=== PATIENT | female | born 1970 | race Caucasian/White ===

== ENCOUNTER → 2020-03-13 13:28 | Outpatient (CLI) | payer OTHER, SELFPAY ==
[2020-03-13 10:57] VITALS: BMI 31.6
--- NOTE | 2020-03-13 13:32 | VDLE_ITS ---
Reason For Study: Swelling RIGHT LEFT CFV is compressible, spontaneous, phasic, CFV is compressible, spontaneous, phasic, competent and demonstrates normal competent, and demonstrates normal augmentation. augmentation. FV is compressible, spontaneous, phasic, competent and demonstrates normal augmentation. POP V is compressible, spontaneous, phasic, competent and demonstrates normal augmentation. T/P Trunk is compressible. PTV is compressible. RT PerV is compressible. Superficial vein thrombosis is noted in the right GSV from distal thigh to prox thigh not extending into junction. Thrombus filled varicose veins noted in the mid thigh to proximal calf. Procedure Exam performed in department. A preliminary report was called and/or faxed to [facility]. Interpretation Summary Deep veins of the right lower extremity are patent and compressible segmentally. There is no evidence of right lower extremity deep vein thrombosis. Valvular competence appears intact within the proximal deep venous system on the right . Acute superficial thrombophlebitis is noted in the right great saphenous vein from the distal thigh to the proximal thigh, but not extending into the deep venous system. Acute superficial thrombophlebitis is noted involving superficial varicosities in the right mid-thigh down to the proximal calf. Ordering Physician: Sylvain Salmeron Referring Physician: Arlene Verdugo Performed By: Katia Winslow RVT
== END ==
PROVIDERS: PCP Internal Medicine; Referring Provider Nurse Practitioner Family; Visit Provider Nurse Practitioner Family
DX: I83.813 Varicose veins of bilateral lower extremities with pain (principal); M79.661 Pain in right lower leg; M79.651 Pain in right thigh
CPT/HCPCS: 93971

== ENCOUNTER → 2020-09-19 15:35 | Outpatient (CLI) | payer OTHER, SELFPAY ==
[2020-08-07 17:03] VITALS: BMI 30.8
[2020-09-19 16:58] LABS: Absolute Lymphocyte Count 2.11 X10^3/uL (0.83-4.51); Absolute Neutrophil Count 5.8 X10^3/uL (2.0-7.7); Basophil# 0.07 X10^3/uL; Basophil% 0.8 % (0-1); Eosinophil# 0.19 X10^3/uL; Eosinophils% 2.1 % (0-5); Hematocrit 35.2 % (37-47); Hemoglobin 10.1 g/dL (12.0-15.0); Lymphocyte # 2.11 X10^3/ul (4.0); Lymphocyte % 23.7 % (19-41); Mean Corp Hgb Conc 28.7 g/dL (32-36); Mean Corpuscular Hgb 21.7 pg (27.0-32.0); Mean Corpuscular Volume 75.7 fL (81-99); Mean Platelet Vol. 9.8 fl (6.2-12.0); Monocyte# 0.68 X10^3/uL; Monocyte% 7.6 % (0-10); NRBC Flagged by Analyzer 0 % (0-5); Neutrophil # 5.83 X10^3/uL (2.7-7.7); Neutrophil % 65.5 % (47-70); Platelet Count 295 K/mm3 (150-450); RBC Distribution Width CV 16.5 % (11.6-14.6); RBC Distribution Width SD 44.3 fl (35.1-43.9); Red Blood Count 4.65 M/mm3 (4.2-5.4); White Blood Count 8.9 K/mm3 (4.4-11.0)
[2020-09-19 17:17] LABS: ALB/GLOB Ratio 1.1 RATIO (0.9-2.4); AST(SGOT) 9 U/L (15-37); Alanine Aminotransfer ALT/SGPT 26 U/L (13-56); Albumin, Serum 3.8 g/dL (3.2-5.0); Alkaline Phosphatase 51 U/L (45-117); Anion Gap 4 (5-15); BUN 19 mg/dL (7-18); BUN/Creat Ratio 25.3 RATIO (10-20); Chloride 107 mmol/L (98-107); Cholesterol 155 mg/dL (200); Creatinine, Serum 0.75 mg/dL (0.55-1.02); EST Glomerular Filtration Rate 87 mL/min (>60); Est Glom Filt Rate - Afr Amer 105 mL/min (>60); Globulin 3.6 g/dL (2.2-4.2); Glucose 84 mg/dL (74-106); High Density Lipoprotein 81 mg/dL; Potassium 4.3 mmol/L (3.5-5.1); Protein, Total 7.4 g/dL (6.4-8.2); Sodium Level 139 mmol/L (136-145); Triglycerides 82 mg/dL; Very Low Density Lipoprotein 16 mg/dL (5-40)
[2020-09-20 10:49] LABS: Ferritin 4 ng/mL (8-252); Iron 45 ug/dL (50-170); Iron Binding Capacity,Total 521 ug/dL (250-450)
== END ==
PROVIDERS: PCP Internal Medicine; Referring Provider Internal Medicine; Visit Provider Internal Medicine
DX: Z00.00 Encounter for general adult medical examination without abnormal findings (principal); D64.9 Anemia, unspecified
CPT/HCPCS: 36415; 80053; 80061; 82728; 83540; 83550; 85025

== ENCOUNTER → 2020-09-23 15:31 | Outpatient (CLI) | payer OTHER, SELFPAY ==
[2020-09-19 16:21] VITALS: BMI 30.8
== END ==
PROVIDERS: PCP Internal Medicine; Visit Provider Internal Medicine
DX: D64.9 Anemia, unspecified (principal)
CPT/HCPCS: 82274

== ENCOUNTER → 2020-10-17 16:33 | Outpatient (CLI) | payer OTHER, SELFPAY ==
[2020-10-17 14:15] VITALS: BMI 31.0
[2020-10-22 20:32] LABS: HPV APTIMA, High Risk Negative (Negative)
== END ==
PROVIDERS: PCP Internal Medicine; Visit Provider Nurse Practitioner Women's Health
DX: Z12.4 Encounter for screening for malignant neoplasm of cervix (principal)
CPT/HCPCS: 87624; 88175; G0145

== ENCOUNTER → 2020-10-29 12:51 | Outpatient (CLI) | payer OTHER, SELFPAY ==
[2020-05-01 18:16] VITALS: BMI 31.6
[2020-10-17 14:15] VITALS: BMI 31.0
--- NOTE | 2020-10-29 13:02 | BI_ITS ---
MAMMOGRAPHY - BILATERAL SCREENING REASON FOR EXAM: Female, 49 years old. Routine annual screening examination. PERTINENT HISTORY: Non-contributory. TECHNIQUE: Digital bilateral breast elver (3D mammographic acquisition) in the CC and MLO projections. 2-D mediolateral oblique (MLO) and craniocaudad (CC) views of both breasts were obtained. CAD: Full Field Digital Mammography with Computer Added Detection was performed. COMPARISON: Comparison is made with prior outside examination 04/01/2015. FINDINGS: Breast Composition: The breasts are heterogeneously dense, which may obscure small masses. There are no dominant masses or suspicious calcifications. No other significant abnormalities are identified. There has been no significant change since the prior study. BI/SCRN MAMM (CAD)W/ELVER BILAT IMPRESSION: Stable bilateral screening mammogram. Yearly follow-up mammogram recommended. (A) ASSESSMENT CATEGORY: BIRADS Category 1: Negative. A letter regarding these results will be sent to the patient by the facility within 30 days. Approximately 10% of breast cancers are not detected by mammography. A normal mammogram should not delay biopsy of a clinically suspicious abnormality. [id number] Electronically Signed: Darrius Hernández MD at 15:09 EDT , Service support ,
--- NOTE | 2020-10-29 13:02 | US_ITS ---
STUDY: ULTRASOUND OF THE FEMALE PELVIS - COMPLETE REASON FOR EXAM: Female, 49 years old. Menorrhagia LMP: 09/28/2020 TECHNIQUE: Transabdominal and Transvaginal TECHNICAL QUALITY: Adequate. COMPARISON: None. FINDINGS: The uterus is anteverted and is in a midline position. The uterus is enlarged and measures 14.7 cm x 7.4 cm x 7.8 cm. There is a Nabothian cyst of the cervix. There is a 1.6 cm x 1.1 cm x 1 cm polyp in the endocervical canal. The endometrium measures 14 mm in thickness, and is . There is no demonstrated endometrial mass. 2 fibroids are seen. The largest fibroid measures 7.3 cm x 5.6 cm x 5 cm. I.U.D. - The patient does not have an I.U.D. The right ovary is visualized. The right ovary measures 2.9 cm x 3 cm x 2.3 cm. There is a 2.2 cm x 2.3 cm x 1.7 cm right ovarian cyst. There is no visualized right adnexal mass or complex lesion. There is normal arterial and normal venous vascularity. The left ovary is visualized. The left ovary measures 3.7 cm x 2.8 cm x 1.9 cm. There is a 1.7 cm x 2 cm x 1.4 cm left ovarian cyst. There is no visualized left adnexal mass or complex lesion. There is normal arterial and normal venous vascularity. There is no fluid in the cul-de-sac. The pre void volume of the bladder was 602 ml. US/Pelvic (Non ) IMPRESSION: Enlarged fibroid uterus containing at least 2 fibroids the largest measuring 7.3 cm x 5.6 x 5 cm. Findings suggestive of a 1.6 cm x 1 cm x 1.1 cm polyp in the uterine cervix. Bilateral ovarian cysts. Electronically Signed: Darrius Hernández MD at 15:26 EDT , Service support ,
--- NOTE | 2020-10-29 13:02 | US_ITS ---
STUDY: ULTRASOUND OF THE FEMALE PELVIS - COMPLETE REASON FOR EXAM: Female, 49 years old. Menorrhagia LMP: 09/28/2020 TECHNIQUE: Transabdominal and Transvaginal TECHNICAL QUALITY: Adequate. COMPARISON: None. FINDINGS: The uterus is anteverted and is in a midline position. The uterus is enlarged and measures 14.7 cm x 7.4 cm x 7.8 cm. There is a Nabothian cyst of the cervix. There is a 1.6 cm x 1.1 cm x 1 cm polyp in the endocervical canal. The endometrium measures 14 mm in thickness, and is . There is no demonstrated endometrial mass. 2 fibroids are seen. The largest fibroid measures 7.3 cm x 5.6 cm x 5 cm. I.U.D. - The patient does not have an I.U.D. The right ovary is visualized. The right ovary measures 2.9 cm x 3 cm x 2.3 cm. There is a 2.2 cm x 2.3 cm x 1.7 cm right ovarian cyst. There is no visualized right adnexal mass or complex lesion. There is normal arterial and normal venous vascularity. The left ovary is visualized. The left ovary measures 3.7 cm x 2.8 cm x 1.9 cm. There is a 1.7 cm x 2 cm x 1.4 cm left ovarian cyst. There is no visualized left adnexal mass or complex lesion. There is normal arterial and normal venous vascularity. There is no fluid in the cul-de-sac. The pre void volume of the bladder was 602 ml. US/Transvaginal Non- IMPRESSION: Enlarged fibroid uterus containing at least 2 fibroids the largest measuring 7.3 cm x 5.6 x 5 cm. Findings suggestive of a 1.6 cm x 1 cm x 1.1 cm polyp in the uterine cervix. Bilateral ovarian cysts. Electronically Signed: Darrius Hernández MD at 15:26 EDT , Service support ,
== END ==
PROVIDERS: PCP Internal Medicine; Referring Provider Nurse Practitioner Women's Health; Visit Provider Nurse Practitioner Women's Health
DX: Z12.31 Encounter for screening mammogram for malignant neoplasm of breast (principal); N92.0 Excessive and frequent menstruation with regular cycle
CPT/HCPCS: 76830; 76856; 77063; 77067

== ENCOUNTER → 2020-10-31 16:21 | Outpatient (CLI) | payer OTHER, SELFPAY ==
--- NOTE | 2020-10-31 | EMB_PTH ---
PATIENT: JAYLENE SHEA LOC: [facility] U#:[id number] AGE/SX: 54/F ROOM: RE10/31/[address]: ADAM Wilkes : 1970 BED: DIS: SPEC #: [id number] RECD: 10/31/20 16:21 STATUS: VIVI REYNA #: [id number] ISAIAH: 10/31/20 00:[address]: Juanis Montelongo NP DEPT: SURGICAL PATHOLOGY RECD BY: Hoang Paredes Tissues: Endometrium, NOS Procedures: Surgery Specimen Level IV HEADER OPERATION: Endometrial biopsy PRE-OP DIAGNOSIS: Abnormal uterine bleeding TISSUE SUBMITTED: Endometrial biopsy MICROSCOPIC DIAGNOSIS Endometrium, biopsy: Secretory endometrium. AM:renetta 11/04/2020 MICROSCOPIC DESCRIPTION Slides are reviewed. GROSS DESCRIPTION Received is one container labeled with the patient's name and not further designated. The specimen consists of multiple fragments of pink hemorrhagic soft tissue that in aggregate measure 3 x 2.5 x 0.3 cm. The specimen is totally submitted in one cassette. / SJ:rg 11/01/20 TC:5 CPT: 07257
[2020-10-31 13:53] VITALS: BMI 30.7
== END ==
PROVIDERS: Visit Provider Nurse Practitioner Women's Health
DX: N93.9 Abnormal uterine and vaginal bleeding, unspecified (principal)
CPT/HCPCS: 88305

== ENCOUNTER 2020-12-10 09:20 | Day surgery (SDC) | payer OTHER, SELFPAY ==
[2020-11-20 08:28] VITALS: BMI 31.3
[2020-12-09 17:33] LABS: Hematocrit 43.1 % (37-47); Hemoglobin 13.8 g/dL (12.0-15.0); Mean Corpuscular Hgb 27.8 pg (27.0-32.0); Mean Corpuscular Volume 86.9 fL (81-99); Mean Platelet Vol. 9.8 fl (6.2-12.0); Platelet Count 261 K/mm3 (150-450); RBC Distribution Width CV 16.8 % (11.6-14.6); RBC Distribution Width SD 53.5 fl (35.1-43.9); Red Blood Count 4.96 M/mm3 (4.2-5.4); White Blood Count 7.2 K/mm3 (4.4-11.0)
[2020-12-09 18:03] LABS: Magnesium 2.2 mg/dL (1.6-2.6)
[2020-12-09 18:17] LABS: Partial Thromboplast Time 27.9 Seconds (24.1-36.2)
[2020-12-10] VITALS (11 sets, daily range): BP systolic 120–142; BP diastolic 72–84; PULSE 64–88; RESP 16–20; TEMP 36.4–37.2; O2SAT 94–100; BMI 31.1
[2020-12-10] MEDS: Acetaminophen 500 MG Tablet 1000 MG PO (07:00)
[2020-12-10] MEDS: dexAMETHasone 10 MG/ML Vial 8 MG IV (07:00)
[2020-12-10] MEDS: Celecoxib 200 MG Capsule 400 MG PO (07:00)
[2020-12-10] MEDS: Gabapentin 600 MG Tablet PO (07:00)
[2020-12-10] MEDS: Phenazopyridine 95 MG Tablet 190 MG PO (07:00)
--- NOTE | 2020-12-10 07:23 | HP.PCM.OB_ITS ---
HPI - General HPI Narrative JAYLENE SHEA, is a 50 F who presents robotic assisted total laparoscopic hysterectomy, bilateral salpingectomy, possible bilateral salpingoophorectomy, cystoscopy for AUB and fibroid uterus. [facility] Medical History (Updated 12/03/20 @ 15:45 by Martine Powers) Anemia Deep vein blood clot of right lower extremity Edema History of alcohol use Hypertension Leg cramps Migraine headache Severe headache Shortness of breath on exertion Smoker Substance abuse Wears glasses Home Medications ibuprofen 200 mg capsule 200 mg PO TID-QID PRN 06/16/18 [History Last Taken Unknown] ferrous sulfate 325 mg (65 mg iron) tablet 325 mg PO DAILY #90 tab 09/20/20 [Rx Last Taken Unknown] pseudoephedrine HCl 240 mg tablet,extended release 24 hr 240 mg PO DAILY PRN 09/26/20 [History Last Taken Unknown] amlodipine 10 mg PO QHS 12/03/20 [History Last Taken Unknown] cetirizine [Zyrtec] 10 mg PO DAILY 12/03/20 [History Last Taken Unknown] Allergy/AdvReac Type Severity Reaction Status Date / Time No Known Allergies Allergy Verified 12/03/20 15:36 Family History Grandmother Cancer Uterine cancer Mother Parkinson disease Other CVA (cerebral vascular accident) Heart disease Hypertension Surgical History (Updated 12/03/20 @ 15:45 by Martine Powers) History of tubal ligation Hx of wisdom tooth extraction Social History (Updated 11/20/20 @ 11:[address] Bertha Zuñiga MD) household members: significant other and other details: grandchildren current occupational status: employed current occupation: [employer] history of recent travel: No sexually active: Yes Smoking Status: Current every day smoker alcohol intake: current alcohol intake frequency: a few times a week Alcohol type: wine substance use type: does not use what type of physical activity do you participate in: none seatbelt use: always do you feel safe at home: Yes additional social history: single History 3 Elective abortions Hx Para 3 Spontaneous abortions Hx # Term Pregnancies Ectopic pregnancies Hx # Pregnancies Multiple births # of living children 3 Past Pregnancies Del. Date Name GA/Weeks Outcome Route Bth Weight Infant Gen Labor Lgth Anesthesia Del Locatn Provider FOB Unknown 1988 Unknown Jaqueline 1990 Unknown Stas 1994 ROS Eyes Eyes: Reports systems reviewed and no addt'l complaints, except as documented ENT HEENT: Reports systems reviewed and no addt'l complaints, except as documented Cardiovascular Cardiovascular: Reports systems reviewed and no addt'l complaints, except as documented Respiratory/Chest Respiratory/Chest: Reports systems reviewed and no addt'l complaints, except as documented Gastrointestinal Gastrointestinal: Reports systems reviewed and no addt'l complaints, except as documented Genitourinary Genitourinary: Reports systems reviewed and no addt'l complaints, except as documented Musculoskeletal Musculoskeletal: Reports systems reviewed and no addt'l complaints, except as documented Integumentary Integumentary: Reports systems reviewed and no addt'l complaints, except as documented Neurologic Neurologic: Reports systems reviewed and no addt'l complaints, except as documented Psychiatric Psychiatric: Reports systems reviewed and no addt'l complaints, except as docum ented Endocrine Endocrinology: Reports systems reviewed and no addt'l complaints, except as documented Hematologic/Lymphatic Hematologic/Lymphatic: Reports systems reviewed and no addt'l complaints, except as documented Allergic/Immunologic Allergic/Immunologic: Reports systems reviewed and no addt'l complaints, except as documented Physical Exam Const alert, oriented x3, no apparent distress, average body habitus, healthy appearing and well nourished HEENT normocephalic and moist oral mucous membranes Head and Scalp: atraumatic Eyes PERRL and EOMs intact bilaterally Neck full ROM Resp normal respiratory effort, no retractions and no use of accessory muscles Cardio regular rate and regular rhythm GI soft to palpation, non-tender and non-distended Extremity normal to inspection and full ROM Skin no rashes or lesions noted Neuro no focal motor deficits and no sensory deficits noted Psych mental status grossly normal, affect normal, speech normal and activity/motor behavior normal Assessment & Plan (1) Uterine fibroid: QUALIFIERS: Uterine leiomyoma location: unspecified location Qualified Code(s): D25.9 - Leiomyoma of uterus, unspecified COMMENT: largest 7cm PLAN: Patient presents for follow-up of AUB and fibroids Has very heavy bleeding with associated anemia as well as bulk symptoms Uterus measures 14.7 cm x 7.4 cm x 7.8 cm. with largest fibroid 7cm EMB normal Patient desires definitive surgical management with hysterectomy. Discussed given size, recommend robotic approach Risks, benefits, indications, and alternatives to the procedure were discussed with the patient including bleeding, infection, and visceral or vascular injury. Discussed the possibility of excessive blood loss due to vascular injury or bleeding with fibroid uterus. Patient is agreeable to blood transfusion if medically necessary. Discussed the possibility of infection at the incision sites, inside the abdomen, or at the vaginal cuff. Discussed that this could require repeat hospitalization or reoperation. We discussed the possibility of damage to surrounding structures. Discussed the possibility of injury to bowel, bladder, or ureters. Discussed that if 1 of these injuries was identified at the time of the procedure, we would consider an intraoperative consult with general surgery or urology. Discussed the possibility of delayed diagnosis of bowel, bladder, or ureteral injury, and that this could require hospitalization after discharge. Patient is aware that in the event of injury to bowel bladder, bladder, or ureters she could require additional surgical interventions. Discussed that I would recommend cystoscopy at the time of surgery in order to evaluate integrity of the ureters. We discussed the possibility that the hysterectomy might not be able to be completed in a minimally invasive manner, and that this would require a larger incision on her abdomen and admission to the hospital. We discussed the risks and benefits of oophorectomy at the time of hysterectomy. Plan to leave ovaries in place unless appear abnormal Plan for robotic assisted total laparoscopic hysterectomy, bilateral salpingectomy, possible bilateral salpingoophorectomy, cystoscopy
[2020-12-10] MEDS: Lactated Ringers 1,000 ML 40 ML IV (10:14)
[2020-12-10] MEDS: Scopolamine 1mg/72hr Patch 1 PATCH TD (10:14)
--- NOTE | 2020-12-10 10:33 | OP.PCM_ITS ---
Problems Associated Problem List Diagnoses (1) Uterine fibroid: Report of Operation Date of Procedure: 12/10/20 Pre-Operative Diagnosis: AUB, symptomatic uterine fibroids Post-Operative Diagnosis: Same Surgery/Procedure Performed:: Robotic assisted total laparoscopic hysterectomy, bilateral salpingectomy, cystoscopy Description of Surgical Findings:: Enlarged fibroid uterus, normal-appearing tubes and ovaries bilaterally overhauler bus truck: Valdemar Reyes Type of Anesthesia: General Special Medications: Ancef 2 g Specimen's removed: Uterus, cervix, bilateral fallopian tubes Drains: Hayes Description of Procedure: The patient was taken to the operating room where general anesthesia was obtained without difficulty. She was prepped and draped in the dorsolithotomy position with yellowfin stirrups. Weighted speculum was placed in the posterior aspect of the vagina and the anterior lip of the cervix was grasped with a single-tooth tenaculum. The cervix was sequentially dilated in order to accommodate a Aventicular uterine manipulator. Gloves were changed and attention was directed to the abdominal cavity. A 5 mm incision was made in the left upper quadrant and the varies needle was inserted without difficulty. The abdomen was insufflated. The Veress needle was removed and a 5 mm Optiview port was placed under direct visualization. Intra-abdominal placement was confirmed. 8 mm incisions were made in the right and left lower quadrants and approximately 2 fingerbreadths above the umbilicus and robotic ports were placed. A 12 mm accessory port was placed in the right upper quadrant. Findings were as above. The patient was placed in steep Trendelenburg positioning and the bowel was displaced superiorly. The da Osvaldo robot was subsequently docked without any complications. The bilateral fallopian tubes were elevated and grasped. The mesosalpinx was cauterized and transected bilaterally. The fallopian tubes were amputated at the cornual region and removed through the accessory port. The utero-ovarian ligaments were identified bilaterally.. These were cauterized and transected with the bipolar cautery and the EndoShears. This was followed by the round ligament, which was cauterized and transected in a similar fashion. The anterior leaf of the broad ligament was entered and the bladder flap dissected off of the lower uterine segment and cervix without complications. The uterine arteries bilaterally were skeletonized, cauterized, and transected. At this time, the uterus was blanched effectively demonstrating that the blood supply to the uterus had been terminated. The colpotomy cup was made with the monopolar scissors and carried around the entire cervicovaginal junction until the cervix and uterus were released from its moorings to the vagina. The cervix and uterus were removed from the abdominal cavity through the vagina. A pneumooccluder was then placed in the vagina. The cuff was then closed in a running fashion using oh V-Loc suture. The abdomen was copiously irrigated, cleared of all clots and debris, and the pedicles were examined and noted to be hemostatic. Occluder was then removed from the vagina. Attention was then directed to the pelvis to perform a cystoscopy. Hayes catheter was removed and the cystoscope was introduced into the bladder. The bladder was inspected and no evidence of trauma was noted. Vigorous spill was noted bilaterally from the ureters. The cystoscope was then removed from the bladder. Gloves were changed and all the instruments were subsequently removed from the patient?s abdomen and vagina, and the 12-mm fascial defect was closed with a #0 Vicryl stitch, and the five skin incisions were closed with #4-0 Monocryl for excellent hemostasis and reapproximation. All counts were correct x2. The patient was awakened and taken to the recovery room in stable condition. Complications None apparent Admit VTE Documentation VTE Present on Admission: No VTE Mechan Device Prophylaxis: SCD's VTE Pharm Prophylaxis ordered?: No Multi Select Codes Urinary/Genital Urinary/Genital CPT Codes: 33323 TLH+BS/O >250gr uterus (robotic assisted)
[2020-12-10 10:35] LABS: Bedside Glucose 81 mg/dL (70-110)
--- NOTE | 2020-12-10 11:05 | PCM.DC ---
Discharge Instructions Diet Discharge Diet: No restrictions Activity Discharge Activity: Return to Normal Activity, May Not Drive (while taking narcotic pain medications.) and May Shower May resume sexual activity in: 6-8 weeks Dressing / Incision Call your doctor if your incision/area has: Continuous Slow Oozing, Sudden Increased Bleeding, Increased Pain/ Swelling, Increased Redness and Foul Smelling Discharge Call your doctor if you observe: Fever of 101 or Higher, Inability to urinate, Inability to have a bowel movement and Using more than one pad per hour Follow Up Care Please Follow Up With: Bertha Zuñiga MD When: 2 weeks for post-op visit Test Results: Test results from this visit will be discussed in further detail at your follow-up appointment, if applicable. Discharge Plan Admission Primary Reason for Your Visit: Robotic hysterectomy Attending Provider: Bertha Zuñiga Primary Care Provider: Arlene Verdugo Instructions Patient Instructions: Laparoscopic Hysterectomy: Your Home Recovery Discharge Orders/Prescriptions Prescriptions: New ibuprofen [ibuprofen] 600 MG tablet 600 mg PO Q6H PRN PRN (Reason: pain) Qty: 30 RF: 1 oxycodone 5 mg capsule 5 mg PO Q6H PRN (Reason: pain) 7 Days Qty: 15 RF: 0 Continued Sudafed 24 Hour 240 mg tablet extended release 24 hr 240 mg PO DAILY PRN (Reason: ALLERGIES) RF: 0 cetirizine [Zyrtec] 10 mg Tablet 10 mg PO DAILY RF: 0 amlodipine 10 mg tablet 10 mg PO QHS RF: 0 ferrous sulfate 325 mg (65 mg iron) tablet 325 mg PO DAILY Qty: 90 RF: 2 Discontinued ibuprofen 200 mg capsule 200 mg PO TID-QID PRN (Reason: Pain) RF: 0 Referrals / Follow Up: Arlene Verdugo MD [Primary Care Provider] - Disposition Disposition (needs filled in before D/C Order can be placed): Home, self care
[2020-12-10] MEDS: Cefazolin 2 GM in 0.9% Normal Saline 100 ML IV (11:17)
--- NOTE | 2020-12-10 11:30 | HYST_PTH ---
PATIENT: JAYLENE SHEA [place] [facility] [id number] AGE/SX: 50/F ROOM: RE12/10/[address]: Dr. Bertha Zuñiga MD : 1970 BED: DIS: 12/10/2020 SPEC #: [id number] RECD: 12/10/20 15:03 STATUS: VIVI REOmar #: [id number] ISAIAH: 12/10/20 11:[address]: Bertha Zuñiga DEPT: SURGICAL PATHOLOGY RECD BY: Jenny Bailey ENTERED: 12/11/20 11:34 SP TYPE: HYSTERECT OTHR DR: Dr. Arlene Verdugo MD Tissues: Uterus, NOS Procedures: Surgery Specimen Level V HEADER OPERATION: ERAS, robotic assisted total laparoscopic hysterectomy, bilateral salpingectomy PRE-OP DIAGNOSIS: Uterine fibroid TISSUE SUBMITTED: Uterus and bilateral fallopian tubes MICROSCOPIC DIAGNOSIS Uterus and bilateral fallopian tubes, hysterectomy and bilateral salpingectomy: Cervix ? chronic cystic cervicitis. Endometrium ? secretory endometrium. Myometrium ? diffuse adenomyosis. - An intramural leiomyoma (2.5 cm in greatest dimension). Bilateral fallopian tubes ? hematosalpinx and endometriosis. Fimbrial end, one fallopian tube - no pathologic diagnosis. SJ:rg 12/12/2020 COMMENT Please make reference to previous specimen ([id number]) endometrium, biopsy with diagnosis of ?secretory endometrium.? MICROSCOPIC DESCRIPTION Slides are reviewed. GROSS DESCRIPTION Received in fixative is one container labeled with the patient's name and designated uterus and bilateral fallopian tubes. The specimen consists of a hysterectomy specimen consisting of uterus with cervix, attached portion of left fallopian and detached portion of right fallopian tube and a separate fimbrial end. The uterus with cervix weighs 415 gm and measures 14 x 10 x 7 cm. The ectocervical mucosa is unremarkable. The external os is oval in contour. The endocervical canal measures 4.5 cm in length and the endocervical mucosa is garcia, glistening and unremarkable. The triangular endometrial cavity measures 5.5 cm in length and 4 cm in width. The endometrium is garcia and measures 0.3 cm in thickness. Sections of the uterine wall reveal one nodular mass measuring 2.5 cm in greatest dimension. Sections of the uterine wall also reveal diffuse trabeculated cut surfaces suspicious for adenomyosis and measures up to 4 cm in thickness. The attached left fallopian tube measures 5.5 cm in length and up to 1 cm in diameter. Sections reveal dilated lumen filled with hemorrhagic fluid. No mass lesion is identified. The fimbrial end is not identified. Also present in the container is a portion of one detached fallopian tube measuring 3.5 cm in length and 1 cm in diameter. Sections reveal dilated lumen filled with mucoid material. The fimbrial end is not identified. Also present in the container is one detached piece of soft tissue, a possible fimbrial end fallopian tube measuring 2 x 1 x 0.5 cm. Tucking Machine Operator sections are submitted in ten cassettes as follows: 1 - anterior cervix, 2 - posterior cervix, 3 & 4 - anterior uterine wall, 5 & 6 - posterior uterine wall, 7 - nodular mass, 8 - attached left fallopian tube, 9 - detached portion of second fallopian tube, 10 - detached portion of soft tissue, a possible fimbrial end, entirely submitted. / IVAN:renetta 12/11/20 TC:5 CPT: 74178
[2020-12-10] MEDS: Ropivacaine 0.5% 30 ML Vial (12:40)
[2020-12-10] MEDS: Lactated Ringers 1,000 ML 70 ML IV (13:01)
== END 2020-12-10 19:08 | disposition home or self-care (01) ==
LOC: SDC 09:20 → AC 09:21
PROVIDERS: Anesthesiology; PCP Internal Medicine; Referring Provider Obstetrics & Gynecology; Visit Provider Obstetrics & Gynecology
PROC: 0UT94ZZ Resection of Uterus, Percutaneous Endoscopic Approach (ICD-10-PCS; CPT 58573; principal; 2020-12-10 11:10)
DX: N80.0 Endometriosis of uterus (principal); D25.1 Intramural leiomyoma of uterus; Z20.822 Contact with and (suspected) exposure to COVID-19; I10 Essential (primary) hypertension; D64.9 Anemia, unspecified; Z86.718 Personal history of other venous thrombosis and embolism; Z79.899 Other long term (current) drug therapy; F17.200 Nicotine dependence, unspecified, uncomplicated
CPT/HCPCS: 00840; 58573; S2900; 36415; 82962; 83735; 85027; 85610; 85730; 86850; 86900; 86901; 87426; 88307; C9803; J7120; J2405

== ENCOUNTER 2020-12-12 17:07 | Emergency (ER) | payer OTHER, SELFPAY ==
[2020-12-10 10:07] VITALS: BMI 31.1
[2020-12-12 17:08] VITALS: BP 131/74; PULSE 72; RESP 18; TEMP 36.3; O2SAT 99; BMI 30.9
[2020-12-12 17:46] VITALS: PULSE 69; RESP 16; O2SAT 99
[2020-12-12 17:49] VITALS: BP 131/74; PULSE 62; RESP 18; TEMP 36.3; O2SAT 99
--- NOTE | 2020-12-12 18:12 | EKG12_ITS ---
Test Reason : SOB Blood Pressure : / mmHG Vent. Rate : 057 BPM Atrial Rate : 057 BPM P-R Int : 118 ms QRS Dur : 092 ms QT Int : 424 ms P-R-T Axes : 055 039 014 degrees QTc Int : 412 ms Sinus bradycardia Otherwise normal ECG Confirmed by BRIGID GARZA, RENAN ([id number]), photo editor YEE TRIANA ([id number]) on 12/16/2020 2:55:05 PM Referred By: FRANK Confirmed By:RENAN RAINEY MD
--- NOTE | 2020-12-12 18:13 | CT_ITS ---
STUDY: CTA CHEST REASON FOR EXAM: Female, 50 years old. Dyspnea RADIATION DOSAGE (If Supplied By Facility): CTDIvol = ( 13.77 ) mGy, DLP = ( 435.62 ) mGycm TECHNIQUE: The examination was performed with the intravenous administration of IV 100mL Isovue-370. Post-processing of the angiographic images was performed, with multiplanar reformation and 3D reconstruction. Individualized dose optimization techniques were used for this CT. COMPARISON: None. FINDINGS: Normal enhancement of the main pulmonary artery and right and left pulmonary arteries. Normal enhancement of the bilateral peripheral pulmonary arteries. There is no demonstrated pulmonary embolism. Normal thoracic aorta and visualized great vessels. There is no demonstrated aortic dissection. Normal heart and pericardium. Normal mediastinum. Normal hilar regions. Normal visualized trachea and bronchi. The lungs are well expanded. Normal pulmonary parenchyma. Bilateral basilar scarring/atelectasis. Subcutaneous emphysema of the chest wall, left more than right. Normal osseous structures. There is pneumoperitoneum in the upper abdomen. CT/CTA Chest W/WO Contrast IMPRESSION: No demonstrated pulmonary embolism or arterial dissection. Bilateral basilar scarring/atelectasis. Subcutaneous emphysema of the chest wall, left more than right. There is pneumoperitoneum in the upper abdomen. Electronically Signed: Thomas Conteh DO at 19:39 EDT Tel [phone], Service support ,
[2020-12-12 18:34] LABS: Bacteria 0 SEEN /hpf (None Seen); Mucous, Urine 0 SEEN /hpf (<or=2+); White Blood Cells 0 SEEN /hpf (0-5)
[2020-12-12 18:35] LABS: Color, Urine Yellow (Yellow); Glucose, Dipstick Normal (Normal); Ketone-Dipstick Negative (Negative); Leukocyte Esterase-Dipstick Negative /ul (Negative); Nitrite-Dipstick Negative (Negative); Occult Blood-Urine 25 /ul (Negative); Protein-Dipstick Negative (Negative); Urine Bilirubin Dipstick Negative (Negative); Urine Clarity Sl. Cloudy (Clear); Urine Urobilinogen Normal (Normal)
[2020-12-12 18:42] LABS: Red Blood Cells-Urine 0-5 SEEN /hpf (0-5); Squamous Epithelial Cells - UA 0-5 SEEN /hpf (5-10)
[2020-12-12 18:45] LABS: Absolute Lymphocyte Count 2.12 X10^3/uL (0.83-4.51); Absolute Neutrophil Count 5.5 X10^3/uL (2.0-7.7); Basophil# 0.03 X10^3/uL; Basophil% 0.4 % (0-1); Eosinophils% 2.4 % (0-5); Hematocrit 42.7 % (37-47); Hemoglobin 13.5 g/dL (12.0-15.0); Lymphocyte # 2.12 X10^3/ul (0.83-4.51); Lymphocyte % 25.1 % (19-41); Mean Corp Hgb Conc 31.6 g/dL (32-36); Mean Corpuscular Hgb 28.5 pg (27.0-32.0); Mean Corpuscular Volume 90.1 fL (81-99); Mean Platelet Vol. 9.7 fl (6.2-12.0); Monocyte# 0.58 X10^3/uL; Monocyte% 6.9 % (0-10); NRBC Flagged by Analyzer 0 % (0-5); Neutrophil # 5.48 X10^3/uL (2.7-7.7); Neutrophil % 64.7 % (47-70); Platelet Count 225 K/mm3 (150-450); RBC Distribution Width CV 15.7 % (11.6-14.6); RBC Distribution Width SD 52.7 fl (35.1-43.9); Red Blood Count 4.74 M/mm3 (4.2-5.4); White Blood Count 8.5 K/mm3 (4.4-11.0)
[2020-12-12 18:51] LABS: International Normalized Ratio 1.1; Partial Thromboplast Time 24.1 Seconds (24.1-36.2); Prothrombin Time (Protime)PT. 13.3 SECONDS (11.7-14.9)
[2020-12-12 18:59] LABS: ALB/GLOB Ratio 1.1 RATIO (0.9-2.4); AST(SGOT) 8 U/L (15-37); Alanine Aminotransfer ALT/SGPT 14 U/L (13-56); Albumin, Serum 3.4 g/dL (3.2-5.0); Alkaline Phosphatase 42 U/L (45-117); Anion Gap 3 (5-15); BUN 9 mg/dL (7-18); BUN/Creat Ratio 12.9 RATIO (10-20); Calcium,Total 8.3 mg/dL (8.5-10.1); Chloride 107 mmol/L (98-107); EST Glomerular Filtration Rate 95 mL/min (>60); Est Glom Filt Rate - Afr Amer 115 mL/min (>60); Estimated Creatinine Clearance 94.54 ml/min; Globulin 3.2 g/dL (2.2-4.2); Glucose 85 mg/dL (74-106); Potassium 3.6 mmol/L (3.5-5.1); Protein, Total 6.6 g/dL (6.4-8.2); Sodium Level 139 mmol/L (136-145)
--- NOTE | 2020-12-12 20:31 | ED.VIS.DYS ---
HPI History of Present Illness Chief Complaint: Shortness of Breath Informant: patient Onset/Context/Timing Onset: Yesterday Context: gradual Timing: Continuous Quality: Positive for Dyspnea on exertion Worsened by: Exertion Relieved by: Rest Associated Symptoms cough and sore throat; Negative for rhinorrhea, ear pain, fever or chills Chest Pain: Positive for None Narrative Narrative: Patient presents with shortness of breath that began yesterday. Patient states her breathing is worse with any exertion. Patient had a recent hysterectomy. Patient admits to a cough and sore throat. Patient states her breathing improves with rest. Patient denies any chest pain. Patient denies any fevers or chills. Patient denies any nausea or vomiting. Patient denies any history of prior pulmonary embolism. Patient is a smoker. PE Risk Factors: Positive for Recent surgery [facility] Medical History Anemia Deep vein blood clot of right lower extremity Edema History of alcohol use Hypertension Leg cramps Migraine headache Severe headache Shortness of breath on exertion Smoker Substance abuse Wears glasses Home Medications ferrous sulfate 325 mg (65 mg iron) tablet 325 mg PO DAILY #90 tab 09/20/20 [Rx Last Taken Unknown] pseudoephedrine HCl 240 mg tablet,extended release 24 hr 240 mg PO DAILY PRN 09/26/20 [History Last Taken Unknown] amlodipine 10 mg PO QHS 12/03/20 [History Last Taken Unknown] cetirizine [Zyrtec] 10 mg PO DAILY 12/03/20 [History Last Taken Unknown] ibuprofen 600 mg PO Q6H PRN PRN #30 tab 12/10/20 [Rx Last Taken Unknown] oxycodone 5 mg PO Q6H PRN 7 Days #15 cap 12/10/20 [Rx Last Taken Unknown] acetaminophen [Tylenol Extra Strength] 1,000 mg PO Q6H PRN 12/12/20 [History Last Taken Unknown] Allergy/AdvReac Type Severity Reaction Status Date / Time No Known Allergies Allergy Verified 12/10/20 09:41 Family History Grandmother Cancer Uterine cancer Mother Parkinson disease Other CVA (cerebral vascular accident) Heart disease Hypertension Surgical History H/O bilateral salpingectomy H/O cystoscopy History of tubal ligation Hx of wisdom tooth extraction Social History household members: significant other and other details: grandchildren current occupational status: employed current occupation: [employer] history of recent travel: No sexually active: Yes Smoking Status: Current every day smoker alcohol intake: current alcohol intake frequency: a few times a week Alcohol type: wine substance use type: does not use what type of physical activity do you participate in: none seatbelt use: always do you feel safe at home: Yes additional social history: single ROS ROS ED Constitutional Constitutional ED: Denies chills or fever(s) Eyes Eyes: Denies blurry vision or change in vision ENT ENT ED: Reports sore throat; Denies rhinorrhea Cardiovascular Cardiovascular: Denies chest pain or palpitations Respiratory/Chest Respiratory/Chest: Reports cough and dyspnea; Denies sputum Gastrointestinal Gastrointestinal: Denies nausea or vomiting Genitourinary Genitourinary ED: Denies dysuria or hematuria Musculoskeletal Musculoskeletal: Denies back pain or neck pain Neurologic Neurologic: Denies headache(s) or weakness Allergic/Immunologic Allergic/Immunologic ED: Denies mouth swelling or urticaria EXAM Physical Exam Const Vital Signs: 12/12/20 17:08 12/12/20 17:46 12/12/20 17:49 Temperature 97.3 F L 97.3 F L Temperature Source Temporal Oral Pulse Rate 72 69 62 Respiratory Rate 18 16 18 Respiratory Effort Short of Breath Respiratory Depth Normal Respiratory Pattern Normal Blood Pressure 131/74 H 131/74 H Blood Pressure Mean 93 93 Pulse Ox 99 99 99 Oxygen Delivery Method Room Air Room Air Room Air 12/12/20 21:05 Temperature Temperature Source Pulse Rate Respiratory Rate 16 Respiratory Effort Respiratory Depth Respiratory Pattern Blood Pressure Blood Pressure Mean Pulse Ox Oxygen Delivery Method Positive well nourished and well developed General Appearance ED: well developed HEENT Reports moist mucous membranes Neck supple and no JVD Resp normal respiratory effort and clear to auscultation bilaterally Cardio regular rate and regular rhythm GI non-distended GI Narrative: There is some mild incisional tenderness. There is no rebound or guarding noted. Auscultation: normoactive bowel sounds Palpation: soft; Negative for guarding or rebound tenderness present Extremity normal to inspection General Extremety ED: Negative for edema or tenderness General Extremity: Negative for edema Neuro oriented x3, CN's II-XII intact bilaterally and no sensory deficits noted Sensorium / Orientation: alert Motor Exam: strength 5/5 throughout Psych mental status grossly normal MDM MDM MDM Narrative Medical decision making narrative: EKG was obtained. On my interpretation, it showed a normal sinus rhythm with a rate of 57. VT interval, QRS interval, and QTc intervals were all normal. [place] was normal. There are no acute ST or T wave changes. CBC is normal. PT with INR and PTT were normal. Comprehensive metabolic profile and troponin were all normal. Urinalysis does not show any evidence of urinary tract infection. CT of the chest was obtained. There is no evidence of pulmonary embolism. There is some free intraperitoneal air and subcutaneous emphysema, left worse than right. Case was discussed with Dr. Zuñiga who did her recent hysterectomy. She states that the free air and subcutaneous emphysema is likely from the recent surgery. Patient is feeling better on reevaluation. Patient will follow up with Dr. Zuñiga in 5 to 7 days. Patient understood and was agreeable with the plan. All questions were answered. Lab Data Attestation: I reviewed the patient's lab results. Labs: Laboratory Results - last 24 hr 12/12/20 12/12/20 12/12/20 17:53 17:53 17:53 WBC 8.5 RBC 4.74 Hgb 13.5 Hct 42.7 MCV 90.1 MCH 28.5 MCHC 31.6 L RDW Std Deviation 52.7 H RDW Coeff of Danni 15.7 H Plt Count 225 MPV 9.7 Immature Gran % (Auto) 0.500 Neut % (Auto) 64.7 Lymph % (Auto) 25.1 [place] % (Auto) 6.9 Eos % (Auto) 2.4 Baso % (Auto) 0.4 Absolute Neuts (auto) 5.5 Absolute Lymphs (auto) 2.12 Nucleated RBC % 0 PT 13.3 INR 1.1 APTT 24.1 Sodium 139 Potassium 3.6 Chloride 107 Carbon Dioxide 29.0 Anion Gap 3 L BUN 9 Creatinine 0.70 Estim Creat Clear Calc 94.54 Est GFR (MDRD) Af Amer 115 Est GFR (MDRD) Non-Af 95 BUN/Creatinine Ratio 12.9 Glucose 85 Calcium 8.3 L Total Bilirubin 0.60 AST 8 L ALT 14 Alkaline Phosphatase 42 L Troponin I < 0.015 Total Protein 6.6 Albumin 3.4 Globulin 3.2 Albumin/Globulin Ratio 1.1 Urine Color Urine Clarity Urine pH Ur Specific [place] Urine Protein Urine Glucose (UA) Urine Ketones Urine Occult Blood Urine Nitrite Urine Bilirubin Urine Urobilinogen Ur Leukocyte Esterase Urine RBC Urine WBC Ur Squamous Epith Cells Urine Bacteria Urine Mucus 12/12/20 18:26 WBC RBC Hgb Hct MCV MCH MCHC RDW Std Deviation RDW Coeff of Danni Plt Count MPV Immature Gran % (Auto) Neut % (Auto) Lymph % (Auto) [place] % (Auto) Eos % (Auto) Baso % (Auto) Absolute Neuts (auto) Absolute Lymphs (auto) Nucleated RBC % PT INR APTT Sodium Potassium Chloride Carbon Dioxide Anion Gap BUN Creatinine Estim Creat Clear Calc Est GFR (MDRD) Af Amer Est GFR (MDRD) Non-Af BUN/Creatinine Ratio Glucose Calcium Total Bilirubin AST ALT Alkaline Phosphatase Troponin I Total Protein Albumin Globulin Albumin/Globulin Ratio Urine Color Yellow Urine Clarity Sl. Cloudy Urine pH 6.0 Ur Specific [place] 1.010 Urine Protein Negative Urine Glucose (UA) Normal Urine Ketones Negative Urine Occult Blood 25 H Urine Nitrite Negative Urine Bilirubin Negative Urine Urobilinogen Normal Ur Leukocyte Esterase Negative Urine RBC 0-5 SEEN Urine WBC 0 SEEN Ur Squamous Epith Cells 0-5 SEEN Urine Bacteria 0 SEEN Urine Mucus 0 SEEN Radiography Diagnostic Testing: Radiology Impression Chest CTA 12/12/20 18:13 IMPRESSION: No demonstrated pulmonary embolism or arterial dissection. Bilateral basilar scarring/atelectasis. Subcutaneous emphysema of the chest wall, left more than right. There is pneumoperitoneum in the upper abdomen. Electronically Signed: Thomas Conteh DO at 19:39 EDT Tel [phone], Service support , EKG Initial EKG: Attestation: I personally reviewed and interpreted this EKG as follows: Interpretation: Sinus Rhythm (57) and No Acute Injury Pattern Discharge Plan Triage Chief Complaint: Shortness of Breath ED Provider: Juan White Dx/Rx/DC Orders Clinical Impression: Acute dyspnea Instructions: ED Dyspnea Prescriptions: No Action Sudafed 24 Hour 240 mg tablet extended release 24 hr 240 mg PO DAILY PRN (Reason: ALLERGIES) RF: 0 cetirizine [Zyrtec] 10 mg Tablet 10 mg PO DAILY RF: 0 amlodipine 10 mg tablet 10 mg PO QHS RF: 0 ibuprofen [ibuprofen] 600 MG tablet 600 mg PO Q6H PRN PRN (Reason: pain) Qty: 30 RF: 1 oxycodone 5 mg capsule 5 mg PO Q6H PRN (Reason: pain) 7 Days Qty: 15 RF: 0 acetaminophen [Tylenol Extra Strength] 500 mg Capsule 1,000 mg PO Q6H PRN (Reason: Pain) RF: 0 ferrous sulfate 325 mg (65 mg iron) tablet 325 mg PO DAILY Qty: 90 RF: 2 Primary Care Provider: Arlene Verdugo Referrals: Arlene Verdugo MD [Primary Care Provider] - 5-7 Days Bertha Zuñiga MD [STAFF PHYSICIAN] - 3-5 Days Disposition Disposition: Home, self care Discharge Date/Time: 12/12/20 21:05
[2020-12-12 21:05] VITALS: RESP 16
== END 2020-12-12 21:05 | disposition home or self-care (01) ==
PROVIDERS: Emergency Provider Emergency Medicine; PCP Internal Medicine
DX: R06.02 Shortness of breath (principal); R06.09 Other forms of dyspnea; D64.9 Anemia, unspecified; I10 Essential (primary) hypertension; G43.909 Migraine, unspecified, not intractable, without status migrainosus; F17.200 Nicotine dependence, unspecified, uncomplicated
CPT/HCPCS: 71275; 80053; 81001; 84484; 85025; 85610; 85730; 93005; 99284; Q9967; A4216

== ENCOUNTER → 2022-05-15 | Outpatient (CLI) | payer OTHER, SELFPAY ==
[2022-05-15 12:41] LABS: Absolute Lymphocyte Count 1.25 X10^3/uL (0.83-4.51); Absolute Neutrophil Count 6.9 X10^3/uL (2.0-7.7); Basophil# 0.04 X10^3/uL; Basophil% 0.4 % (0-1); Eosinophil# 0.19 X10^3/uL; Eosinophils% 2.1 % (0-5); Hematocrit 48.1 % (37-47); Hemoglobin 15.9 g/dL (12.0-15.0); Lymphocyte # 1.25 X10^3/ul (0.83-4.51); Lymphocyte % 13.9 % (19-41); Mean Corp Hgb Conc 33.1 g/dL (32-36); Mean Corpuscular Hgb 30.5 pg (27.0-32.0); Mean Corpuscular Volume 92.1 fL (81-99); Mean Platelet Vol. 10.4 fl (6.2-12.0); Monocyte# 0.62 X10^3/uL; Monocyte% 6.9 % (0-10); NRBC Flagged by Analyzer 0 % (0-5); Neutrophil # 6.85 X10^3/uL (2.7-7.7); Neutrophil % 76.3 % (47-70); Platelet Count 218 K/mm3 (150-450); RBC Distribution Width CV 12.4 % (11.6-14.6); RBC Distribution Width SD 42.3 fl (35.1-43.9); Red Blood Count 5.22 M/mm3 (4.2-5.4)
[2022-05-15 13:29] LABS: Vitamin D,25 Hydroxy 16.1 ng/mL
[2022-05-15 13:52] LABS: AST(SGOT) 8 U/L (15-37); Alanine Aminotransfer ALT/SGPT 26 U/L (13-56); Albumin, Serum 3.5 g/dL (3.2-5.0); Alkaline Phosphatase 61 U/L (45-117); Anion Gap 4 (5-15); BUN 13 mg/dL (7-18); BUN/Creat Ratio 16.8 RATIO (10-20); Calcium,Total 9.2 mg/dL (8.5-10.1); Chloride 109 mmol/L (98-107); Cholesterol 177 mg/dL (200); Creatinine, Serum 0.78 mg/dL (0.55-1.02); EST Glomerular Filtration Rate 84 mL/min (>60); Est Glom Filt Rate - Afr Amer 101 mL/min (>60); Globulin 3.6 g/dL (2.2-4.2); Glucose 100 mg/dL (74-106); High Density Lipoprotein 63 mg/dL; Potassium 4.3 mmol/L (3.5-5.1); Protein, Total 7.1 g/dL (6.4-8.2); Sodium Level 141 mmol/L (136-145); T4 Free Direct 0.89 ng/dL (0.76-1.46); Thyroid Stim Hormone (TSH) 1.45 uIU/mL (0.358-3.74); Triglycerides 91 mg/dL; Very Low Density Lipoprotein 18 mg/dL (5-40)
== END | disposition home or self-care (01) ==
PROVIDERS: PCP Internal Medicine; Referring Provider Internal Medicine; Visit Provider Internal Medicine
DX: I10 Essential (primary) hypertension (principal)
CPT/HCPCS: 36415; 80053; 80061; 82306; 84439; 84443; 85025

== ENCOUNTER → 2022-08-19 | Outpatient (CLI) | payer OTHER, SELFPAY ==
--- NOTE | 2022-08-19 10:51 | BI_ITS ---
MAMMOGRAPHY - BILATERAL SCREENING REASON FOR EXAM: Female, 51 years old. Routine annual screening examination. PERTINENT HISTORY: Non-contributory. TECHNIQUE: Digital bilateral breast elver (3D mammographic acquisition) in the CC and MLO projections. 2-D mediolateral oblique (MLO) and craniocaudad (CC) views of both breasts were obtained. CAD: Full Field Digital Mammography with Computer Added Detection was performed. COMPARISON: Comparison is made with prior study of 10/29/2020. FINDINGS: Breast Composition: The breasts are heterogeneously dense, which may obscure small masses. There are no dominant masses or suspicious calcifications. Stable benign-appearing bilateral axillary lymph nodes. No other significant abnormalities are identified. There has been no significant change since the prior study. BI/SCRN MAMM (CAD)W/ELVER BILAT IMPRESSION: Stable bilateral screening mammogram. Yearly follow-up mammogram recommended. (A) ASSESSMENT CATEGORY: BIRADS Category 2: Benign. A letter regarding these results will be sent to the patient by the facility within 30 days. Approximately 10% of breast cancers are not detected by mammography. A normal mammogram should not delay biopsy of a clinically suspicious abnormality. [id number] Electronically Signed: Darrius Hernández MD at 12:20 EST ,
== END | disposition home or self-care (01) ==
LOC: OPBI 10:49
PROVIDERS: PCP Internal Medicine; Visit Provider Internal Medicine
DX: Z12.31 Encounter for screening mammogram for malignant neoplasm of breast (principal)
CPT/HCPCS: 77063; 77067

== ENCOUNTER → 2024-07-04 | Outpatient (CLI) | payer OTHER, SELFPAY ==
--- NOTE | 2024-07-04 14:10 | CT_ITS ---
STUDY: LOW DOSE CT LUNG CANCER SCREENING REASON FOR EXAM: Female, 53 years old. Lung cancer screening -- and gt;20 pk yr hx;former smoker;asymptomatic RADIATION DOSAGE (If Supplied By Facility): CTDIvol = ( 4.02 ) mGy, DLP = ( 122.85 ) mGycm TECHNIQUE: No contrast was administered. Low dose technique was utilized (average mAS-38 and kVp 120). 1.25 mm axial source images with a slice interval of 1.25-mm were reconstructed in lung windows. 2.5 mm axial source images with a slice interval of 2.5-mm were reconstructed in lung windows. 5.0 mm axial source images with a slice interval of 5.0-mm were reconstructed in soft tissue windows. COMPARISON: Comparison is made with prior CT of the chest dated December 12, 2020. NODULES: No suspicious nodules are seen. Emphysema: Findings suggestive of scarring in the lingular segment of the left upper lobe and anterior aspect of the right middle lobe. Endobronchial lesion: Unremarkable Aorta: Minimal plaque formation of the aortic arch. CORONARY ARTERIES: Coronary artery calcification is not seen. Heart: Unremarkable Pulmonary artery: Unremarkable Mediastinal nodes: Unremarkable Other chest and abdominal findings: CT/Low Dose CT Lung Screening IMPRESSION: Lung-RADS category 2 - Continue annual screening with LDCT in 12 months. IMPORTANT NOTES FOR USE: ACR Lung-RADS Version 1.1 Assessment Categories Release Date: 2018 Category: Coded 0-4 bases on nodule(s) with highest degree of suspicion. Negative screen is defined as categories 1 and 2; a positive screen is defined as categories 3 and 4. Category 3 and 4A nodules that are unchanged on interval CT should be coded as category 2, and individuals returned to screening in 12 months. Category 4X: Category 3 or 4 nodules with additional imaging findings that increase the suspicion of lung cancer, such as spiculation, GGN that doubles in size in 1 year, enlarged lymph notes, etc. Category Modifiers: S (significant finding unrelated to lung cancer) Electronically Signed: Darrius Hernández MD at 14:45 EST ,
== END | disposition home or self-care (01) ==
PROVIDERS: PCP Internal Medicine; Referring Provider Nurse Practitioner Family; Visit Provider Nurse Practitioner Family
DX: Z12.2 Encounter for screening for malignant neoplasm of respiratory organs (principal); Z87.891 Personal history of nicotine dependence
CPT/HCPCS: 71271

== ENCOUNTER → 2025-07-10 | Outpatient (CLI) | payer OTHER, SELFPAY ==
--- NOTE | 2025-07-10 14:41 | CT_ITS ---
PROCEDURE: LOW DOSE CT LUNG SCREENING 07/10/2025 REASON FOR EXAM: LUNG CANCER SCREENING Former smoker. Patient has smoked 1 pack per day for 40 years. TECHNIQUE: Procedure Code: [id number] Modality: CT Procedure: LOW DOSE CT LUNG SCREENING Coronal and Sagittal reconstruction series were provided. One or more dose reduction techniques were used (e.g., Automated exposure control, adjustment of the mA and/or kV according to patient size, use of iterative reconstruction technique). REFERENCE LINK: [employer] Lung-RADS RADIATION DOSE SUMMARY: CTDlvol: 3.02 mGy DLP: 107.22 mGycm COMPARISON: July 04, 2024. FINDINGS: PULMONARY NODULES: (Only nodules >3mm are reported) Nodules described below are on series 1 unless otherwise specified. Pulmonary Nodules: No suspicious pulmonary nodules seen. Stable linear scarring in the lingular segment of the left upper lobe as well as the medial aspect of the right middle lobe. Hardware:None Lymph Nodes:No suspicious hilar or mediastinal lymph nodes are seen. Heart and Vasculature:The heart is nonenlarged. No evidence of pericardial effusion. Coronary Artery Calcifications: Absent Lungs and Airways: Mild scarring in the lingula segment of the left upper lobe as well as the medial aspect of the right middle lobe. Pleura:No pleural effusion. Upper Abdomen:Unremarkable Bones:Degenerative changes of the thoracic spine. Increased kyphosis. CT/Low Dose CT Lung Screening IMPRESSION: Stable examination. Coronary artery calcification (CAC) is is absent Lung-RADS Category: 2 BENIGN (BASED ON IMAGING FEATURES OR INDOLENT BEHAVIOR). RECOMMEND 12-MONTH SCREENING LDCT. Other Significant Findings: Reading Location: [place] [id number]
== END | disposition home or self-care (01) ==
LOC: CT 14:40
PROVIDERS: PCP Internal Medicine; Referring Provider Nurse Practitioner Family; Visit Provider Nurse Practitioner Family
DX: Z12.2 Encounter for screening for malignant neoplasm of respiratory organs (principal); Z87.891 Personal history of nicotine dependence
CPT/HCPCS: 71271